=== PATIENT | male | born 1990 ===

== ENCOUNTER 2024-05-18 05:48 | Day surgery (SDC) | payer OTHER ==
[2024-05-14 08:53] VITALS: BP 103/69
[2024-05-14 09:11] LABS: HEMATOCRIT 47.3 % (39.0-48.0); MEAN CELL VOLUME 91.6 fL (80.0-100.00); MEAN CORPUSCULAR HGB CONC 33.9 g/dl (32.0-36.0); PLATELET COUNT 236 K/uL (150-450); RED BLOOD COUNT 5.16 M/uL (4.00-6.00); RED CELL DISTRIBUTION WIDTH 13.6 % (11.5-14.5)
[2024-05-14 09:39] LABS: INR 1.03; PARTIAL THROMBOPLASTIN TIME 29.1 SECONDS (22.0-34.0); PROTHROMBIN TIME 11.2 SECONDS (9.0-11.5)
[2024-05-14 10:02] LABS: PH,URINE 6.5 (5.0-8.0); URINE APPEARANCE Clear; URINE BILIRRUBIN Negative (NEGATIVE); URINE BLOOD Negative; URINE COLOR Yellow; URINE GLUCOSE Negative (NEGATIVE); URINE KETONE 15 (NEGATIVE); URINE LEUKOCYTE Negative; URINE NITRATE Negative; URINE PROTEIN Negative (NEGATIVE)
[2024-05-14 10:04] LABS: URINE BACTERIA 24.4 uL (0.0-1933)
[2024-05-14 10:08] LABS: ALBUMIN 4.1 gm/dL (3.4-5.0); BILIRUBIN TOTAL 1.21 mg/dL (0.3-1.2); CALCIUM 9.3 mg/dL (8.5-10.1); CREATININE SERUM 0.79 mg/dL (0.70-1.30); GFR 112.27; GLOBULINA 2.9 G/DL (2.4-3.5); POTASSIUM 3.97 mEq/L (3.5-5.1)
[2024-05-14 11:00] LABS: URINE CAST 0.14 uL (0.0-1.40); URINE EPITHELIAL CELLS 0.9 uL (0.0-38.8); URINE WBC 1.7 uL (0.0-23.2)
[~2024-05-18] VITALS: Ht 167.6 cm; Wt 56.2 kg
[2024-05-18] MEDS ORDERED: LIDOCAINE HCL 1% 20 ML VIAL IJ ONE (10:13)
[2024-05-18] MEDS ORDERED: CEFAZOLIN SODIUM 1,000 MG VIAL ONE (10:13)
[2024-05-18] MEDS ORDERED: LIDOCAINE HCL 1%/EPINEPHRINE 20ML VIAL IJ ONE (10:13)
== END 2024-05-18 12:40 | disposition home or self-care (01) ==
LOC: CIR.AMB 05:48
PROVIDERS: ATTEND Surgery
DX: D21.0 Benign neoplasm of connective and other soft tissue of head, face and neck (principal)